=== PATIENT | female | born 1990 | race African-American/Black ===

== ENCOUNTER 2018-01-28 10:10 | Emergency (ER) | payer SELFPAY ==
[~2018-01-28] VITALS: Ht 167.6 cm; Wt 61.7 kg
[~2018-01-28 10:10] MED LIST: ACET325T9 PO; ALBU0.63 IH; ALBU1.25 IH; ALBU18HF IH; ALPR1TAB2 PO; AMOX875T PO; AZIT250T PO; CLON1TAB PO; DEXT10TA23; DEXT15CA18 PO; FAMO20TA3 PO; FLUO20CA16 PO; FLUT1DIS3 IH; FLUT1DIS5 IH; HYDR-965 PO; IBUP200C6 PO; IPRA3AMP NEB; OMEP20CA5 PO; ONDA4TAB10 PO; OUT OF MEDS; OXYC5TAB95 PO; PRED20TA PO
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
[2018-01-28] MEDS ORDERED: HYDROcodone/APAP 5/325MG 1 TAB TABLET PO ONE (11:00)
[2018-01-28 11:15] LABS: PREG TEST PT QUAL NEGATIVE (NEG)
--- NOTE | 2018-01-28 11:59 | RAD ---
CT CERVICAL SPINE WO CONTRAST dated 01/28/2018 11:36 AM Indication: Pain, injuryHEAD AND NECK INJURY. Comparison: No comparison is available. Technique: Contiguous axial imaging of the cervical spine acquired with thin cut coronal and sagittal reconstruction. One or more of the following individualized dose reduction techniques were utilized for this examination: 1. Automated exposure control 2. Adjustment of the mA and/or kV according to patient size 3. Use of iterative reconstruction technique Findings: Straightening of the normal cervical lordosis, otherwise sagittal alignment is anatomic through T1. No prevertebral soft tissue swelling. Posterior elements are intact. No evidence of fracture. No significant spondylotic changes. Central canal and foramen are adequate. Visualized soft tissue structures unremarkable. Limited images of lung apices are clear. IMPRESSION: 1. No evidence of fracture or malalignment. 2. Straightening of the normal cervical lordosis could be related to spasm or strain. Electronically signed by: Antonio Decker MD (01/28/2018 11:56 AM) [email or web address]
--- NOTE | 2018-01-28 12:04 | RAD ---
CT HEAD AND MAXILLOFACIAL WO dated 01/28/2018 11:30 AM Indication: Pain head and face painHEAD INJURY. Comparison: No comparison is available. Technique: Contiguous axial imaging of the head performed from skull base to vertex. In addition, axial imaging of the maxillofacial bones obtained with thin cut coronal and sagittal reconstruction. One or more of the following individualized dose reduction techniques were utilized for this examination: 1. Automated exposure control 2. Adjustment of the mA and/or kV according to patient size 3. Use of iterative reconstruction technique Findings: Ventricles and sulci within normal limits for age. No midline shift or mass effect. Brain parenchyma is of normal attenuation. No hemorrhage or extra-axial collection. Posterior fossa and brainstem unremarkable. No apparent calvarial abnormality. Images of the maxillofacial bones show no evidence of displaced fracture. The orbital baxter and maxillary baxter are intact. Zygomatic arches and mandible are intact. Minimally displaced fracture of the left nasal bone with mild asymmetric soft tissue swelling over the left cheek Paranasal sinuses are clear. No mucosal thickening or air-fluid level. The ostiomeatal units and infundibula are patent. Minimal mucosal thickening of the right maxillary sinus and bilateral ethmoid air cells. No significant soft tissue abnormality. IMPRESSION HEAD: 1. No evidence of acute intracranial abnormality. IMPRESSION MAXILLOFACIAL: 1. Mildly displaced fracture of the left nasal bone. 2. Otherwise no displaced facial fracture. 3. Mild sinus disease. Electronically signed by: Antonio Decker MD (01/28/2018 12:00 PM) [id number]
[2018-01-28 12:13] VITALS: BP 142/57
== END 2018-01-28 12:55 | disposition home or self-care (01) ==
LOC: ER 10:10
DX: S09.90XA Unspecified injury of head, initial encounter (principal); M54.2 Cervicalgia; J45.909 Unspecified asthma, uncomplicated; F17.210 Nicotine dependence, cigarettes, uncomplicated; Z88.6 Allergy status to analgesic agent; Y04.0XXA Assault by unarmed brawl or fight, initial encounter; Y93.89 Activity, other specified; Y99.8 Other external cause status; Y92.098 Other place in other non-institutional residence as the place of occurrence of the external cause
CPT/HCPCS: 70450; 70486; 72125; 84703; 99285-25